=== PATIENT | female | born 1970 | race African-American/Black ===

== ENCOUNTER → 2017-08-03 | Outpatient (CLI) | payer OTHER ==
[~2017-08-03] MED LIST: ULTR50TA PO
[2017-08-03 07:12] LABS: HEMATOCRIT 37.7 % (35.0-46.0); MEAN CELL VOLUME 91.3 FL (80.0-100.0); MEAN CORPUSCULAR HEMOGLOBIN 30.4 PG (27.0-34.0); MEAN CORPUSCULAR HGB CONC 33.3 % (32.0-36.0); PLATELET COUNT 204 TH/MM3 (150-450); RED BLOOD COUNT 4.13 MIL/MM3 (4.00-5.30); REVIEW FLAG FINAL; WHITE BLOOD COUNT 4.9 TH/MM3 (4.0-11.0)
[2017-08-03 07:44] LABS: ANION GAP 5 MEQ/L (5-15); AST (GOT) 11 U/L (15-37); BICARBONATE 29.3 MEQ/L (21.0-32.0); BLOOD UREA NITROGEN 9 MG/DL (7-18); CHLORIDE 106 MEQ/L (98-107); GLOMERULAR FILTRATION RATE 93 ML/MIN (>89); GLUCOSE,FASTING 91 MG/DL (74-99); POTASSIUM 4.1 MEQ/L (3.5-5.1); SODIUM (NA) 140 MEQ/L (136-145)
[2017-08-03 07:53] LABS: ALKALINE PHOSPHATASE 84 U/L (45-117); ALT (GPT) 23 U/L (10-53); FREE T4 0.95 NG/DL (0.76-1.46); HDL CHOLESTEROL 62.4 MG/DL (40.0-60.0); LDL CHOLESTEROL 112 MG/DL (0-99); TOTAL BILIRUBIN ADULT 0.4 MG/DL (0.2-1.0)
== END ==
LOC: CLAB 06:39
PROVIDERS: ATTEND Family Medicine
DX: E03.9 Hypothyroidism, unspecified (principal); R53.83 Other fatigue
CPT/HCPCS: 36415; 80053; 80061; 84439; 84443; 85027

== ENCOUNTER 2018-01-30 11:11 | Emergency (ER) | payer OTHER ==
[~2018-01-30] VITALS: Ht 162.6 cm; Wt 100.0 kg
[2018-01-30 11:15] VITALS: BP 165/77; PULSE 68; RESP 16; TEMP 98.6; O2SAT 100
--- NOTE | 2018-01-30 12:36 | PD ---
HPI . Leg swelling Chief Complaint: Edema Time Seen by Provider: 12:21 Travel History International Travel<30 days: No Contact w/Intl Traveler<30days: No Traveled to known affect area: No History of Present Illness HPI Patient presents with a 3 day history of left calf pain and swelling. Symptoms have been persistent for the last 3 days. Severity of pain is 4/10. No modifying factors. She denies any injury. She denies any associated symptoms such as chest pain or shortness of breath. She went to urgent care this morning but was sent to us for evaluation of possible DVT. [facility] Past Medical History Diabetes: No Diminished Hearing: No Hypertension: Yes Thyroid Disease: Yes ?: Not Tubal Ligation: Yes Past Surgical History Hysterectomy: Yes Social History Alcohol Use: No Tobacco Use: No Substance Use: No Allergies-Medications (Allergen,Severity, Reaction): Coded Allergies: morphine (Unverified Allergy, Severe, 04/13/17) Reported Meds & Prescriptions Reported Meds & Active Scripts Active Ultram (Tramadol HCl) 50 Mg Tab 50 Mg PO Q4-6H PRN Review of Systems Except as stated in HPI: all other systems reviewed are Neg Physical Exam Narrative GENERAL: Awake and alert and in no acute distress. SKIN: Warm and dry. Normal color and turgor. HEAD: Normocephalic/atraumatic. EYES: Pupils are equal. Extraocular movements are intact. NECK: Normal range of motion. Supple. CARDIOVASCULAR: Regular rate and rhythm. RESPIRATORY: Nonlabored respirations. Normal sats. MUSCULOSKELETAL: Left calf does appear swollen as compared to the right. The skin of the left leg also appears darker than the skin of the right. There is some left calf tenderness. There is some erythema and warmth of the medial left calf. NEUROLOGICAL: A and O 3. Nonfocal. PSYCHIATRIC: Appropriate mood and affect. Data Data Last Documented VS Vital Signs Date Time Temp Pulse Resp B/P (MAP) Pulse Ox O2 Delivery O2 Flow Rate FiO2 01/30/18 11:15 98.6 68 16 165/77 (106) 100 Orders Orders Us Leg Venous Doppler (01/30/18 12:21) MDM Medical Decision Making Medical Screen Exam Complete: Yes Emergency Medical Condition: Yes Differential Diagnosis Differential diagnosis of leg pain includes but is not limited to lumbar radiculopathy, arthritis, myalgias, DVT. Narrative Course This patient presents with pain and swelling of her left calf. Ultrasound will be done to rule out DVT. She may have cellulitis. Last Impressions Lower Extremity Ultrasound 01/30/18 1221 Impressions: CONCLUSION: 1. Negative study. No venous thrombosis demonstrated of the left lower extremi ty. I will discharge her with a prescription for Keflex for presumed cellulitis. Diagnosis Primary Impression: Pain of left calf Additional Impression: Cellulitis Qualified Codes: L03.116 - Cellulitis of left lower limb Patient Instructions: Cellulitis (DC), General Instructions Med/Other Pt SpecificInfo: Prescription(s) given Scripts Cephalexin (Keflex) 500 Mg Capsule 500 MG PO TID for Infection, #30 CAP 0 Refills Prov: Albina Tran MD 01/30/18 Disposition: 01 DISCHARGE HOME Condition: Stable Albina Tran MD Jan 30, 2018 12:36
--- NOTE | 2018-01-30 16:23 | RADRPT ---
EXAM DATE: 01/30/2018 4:15 PM EDT AGE/SEX: 47 years / Female INDICATIONS: Left leg pain. CLINICAL DATA: This is the patient's initial encounter. Patient reports that signs and symptoms have been present for 3 days and indicates a pain score of 4/10. MEDICAL/SURGICAL HISTORY: Hypertension. Thyroid disease. Tubal ligation. Hysterectomy. COMPARISON: No prior [facility] exams available for comparison. TECHNIQUE: Venous ultrasound of both lower extremities was performed from the inguinal ligament to t he proximal calf. Real-time, color Doppler and spectral tracing, compression and augmentation techni ques were used. FINDINGS: There is normal compressibility of the deep venous system from the inguinal region to the proximal ca lf. No echogenic clot is seen in the lumen of the common femoral, femoral, popliteal, and posterior tibial veins. There is a normal response of the venous system to proximal and distal augmentation an d respiration. CONCLUSION: 1. Negative study. No venous thrombosis demonstrated of the left lower extremity. Electronically signed by: Jair Mckenna MD 01/30/2018 4:22 PM EDT
[2018-01-30] MEDS ORDERED: CEPH-460 PO (16:26)
== END 2018-01-30 16:32 | disposition home or self-care (01) ==
LOC: NEPD 11:11
DX: L03.116 Cellulitis of left lower limb (principal); I10 Essential (primary) hypertension; Z88.5 Allergy status to narcotic agent
CPT/HCPCS: 93971